=== PATIENT | female | born 1940 | race Caucasian/White ===

== ENCOUNTER 2017-07-29 11:56 | Observation (INO) | payer MEDICARE ==
[2017-07-29] VITALS (7 sets, daily range): BP systolic 133–146; BP diastolic 68–82; PULSE 63–81; RESP 16–18; TEMP 97.8–98.7; O2SAT 94–98
[~2017-07-29] VITALS: Ht 162.6 cm; Wt 70.0 kg
[~2017-07-29 11:56] MED LIST: ASPI325T PO; ATOR20TA42 PO; COQ-100C2 PO; LEXA10TA PO; SYNT25TA PO; TAB-TAB PO; VALA500 PO; VITA-13 PO; ZOLP5TAB3 PO
--- NOTE | 2017-07-29 12:02 | PD ---
Physical Exam Time Seen by Provider: 12:02 Narrative 77 y/o female here with chest pain which started at 1 AM, none currently. Vital signs reviewed. Seen at triage desk. Awaiting bed placement. Data Data Last Documented VS Vital Signs Date Time Temp Pulse Resp B/P (MAP) Pulse Ox O2 Delivery O2 Flow Rate FiO2 07/29/17 11:57 97.8 81 18 146/82 (103) 95 Room Air MDM Medical Record Reviewed: Yes Supervised Visit with WING: Orville Morgan Jul 29, 2017 12:02
[2017-07-29] MEDS ORDERED: COQ-50CA2 P-ARTICULR (12:20)
[2017-07-29] MEDS ORDERED: ATOR20TA15 PO (12:20)
[2017-07-29] MEDS ORDERED: FISHCAP4 PO (12:20)
[2017-07-29] MEDS ORDERED: LEVO125T4 PO (12:20)
[2017-07-29] MEDS ORDERED: ASPI325T PO (12:20)
[2017-07-29] MEDS ORDERED: MULTTAB67 PO (12:20)
[2017-07-29] MEDS: NITROGLYCERIN 0.4 MG SL 25 TABS/BTL SL SCH ×3 (12:30→12:40)
[2017-07-29] MEDS ORDERED: SODIUM CHLORIDE 0.9% FLUSH 10 ML FLUSH IVF PRN (12:30)
--- NOTE | 2017-07-29 12:30 | PD ---
HPI Chief Complaint: Chest Pain Time Seen by Provider: 12:18 Travel History International Travel<30 days: No Contact w/Intl Traveler<30days: No History of Present Illness HPI Patient comes in complaining of chest pain that began around 1:00 this morning. Patient states that she awoke this morning feeling some numbness or left arm when she rolled her she noticed a heaviness in her chest. Patient states the left arm has resolved, but she continues to have the heaviness in her chest. Patient reports associated shortness of breath with this. Denies any nausea, vomiting, headache, dizziness, change in vision, no pain, nausea, vomiting, loss change in bowel or bladder. Patient states she took a full dose aspirin this morning with her regular medications and after debating a for while contacted her primary care doctor who recommended she come to the emergency department for further treatment and evaluation. Patient reports she had a stress test done approximately a year ago by Dr. Swartz. Patient reports that she has 80% blockage in one of her coronary arteries that was not able to be stented and she is being managed medically. PFSH Past Medical History Cancer: No Cardiac Catheterization: Yes Cardiovascular Problems: Yes High Cholesterol: Yes Coronary Artery Disease: Yes Diabetes: No Diminished Hearing: No Endocrine: Yes Gastrointestinal Disorders: Yes (GERD, DIVERTICULOSIS) Glaucoma: No Genitourinary: No Hepatitis: No Hiatal Hernia: No Hypertension: No Musculoskeletal: No Neurologic: No Psychiatric: No Respiratory: No Thyroid Disease: Yes ?: Not Menopausal: Yes Past Surgical History Abdominal Surgery: Yes (ABDOMINAL HYSTERECTOMY) Cardiac Surgery: No Coronary Stent: Yes Ear Surgery: No Endocrine Surgery: No Eye Surgery: Yes (RIGHT EYE CATARACT SX) Gynecologic Surgery: No Hysterectomy: Yes Oral Surgery: Yes (TONSILLECTOMY; PARTIAL LOWER BRIDGE) Pacemaker: No Thoracic Surgery: No Other Surgery: Yes Social History Alcohol Use: No Tobacco Use: No Substance Use: No Allergies-Medications (Allergen,Severity, Reaction): Coded Allergies: amoxicillin (Unverified Adverse Reaction, Severe, NAUSEA VOMITING DIARRHEA , 06/16/17) clavulanic acid (Unverified Adverse Reaction, Severe, NAUSEA VOMITING DIARRHEA, 06/16/17) codeine (Unverified Adverse Reaction, Severe, NAUSEA VOMITING, 06/16/17) Sulfa (Sulfonamide Antibiotics) (Unverified Adverse Reaction, Mild, NAUSEA , 06/16/17) Reported Meds & Prescriptions Reported Meds & Active Scripts Active Reported Aspirin 325 Mg Tab 325 Mg PO DAILY Fish Oil + D3 (Fish Oil-Cholecalciferol) 1,200-1,000 Mg-Unit Cap 1 Cap PO DAILY Multiple Vitamin 1 Tab 1 Tab PO DAILY Coq-10 (Coenzyme Q10 (Ubidecarenone)) 50 Mg Cap 100 Mg P-ARTICULR DAILY Levothyroxine (Levothyroxine Sodium) 125 Mcg Tab 125 Mcg PO DAILY Atorvastatin (Atorvastatin Calcium) 20 Mg Tab 20 Mg PO HS Review of Systems Except as stated in HPI: all other systems reviewed are Neg Physical Exam Narrative GENERAL: Well-developed, well nourished, in no acute distress, and non-ill appearing. SKIN: Focused skin assessment warm and dry. HEAD: Atraumatic. Normocephalic. EYES: Pupils equal and round. EOMI. No scleral icterus. No injection or drainage. ENT: No nasal bleeding or discharge. Mucous membranes pink and moist. NECK: Trachea midline. No JVD. Supple. No nuclear rigidity. CARDIOVASCULAR: Regular rate and rhythm. No murmur appreciated. RESPIRATORY: No accessory muscle use. No respiratory distress. Clear to auscultation. Breath sounds equal bilaterally. GASTROINTESTINAL: Abdomen soft, non-tender, nondistended, and no guarding. Hepatic and splenic margins not palpable. No pulsatile mass. MUSCULOSKELETAL: No obvious deformities. No clubbing. No cyanosis. No edema. Full range of motion. NEUROLOGICAL: Awake and alert. No obvious cranial nerve deficits. Motor grossly within normal limits. Normal speech. PSYCHIATRIC: Appropriate mood and affect; insight and judgment normal. Data Data Last Documented VS Vital Signs Date Time Temp Pulse Resp B/P (MAP) Pulse Ox O2 Delivery O2 Flow Rate FiO2 07/29/17 12:33 94 Nasal Cannula 2.00 07/29/17 12:33 16 07/29/17 11:57 97.8 81 Orders Orders Electrocardiogram (07/29/17 12:25) Basic Metabolic Panel (Bmp) (07/29/17 12:25) Ckmb (Isoenzyme) Profile (07/29/17 12:25) Complete Blood Count With Diff (07/29/17 12:25) Magnesium (Mg) (07/29/17 12:25) Prothrombin Time / Inr (Pt) (07/29/17 12:25) Act Partial Throm Time (Ptt) (07/29/17 12:25) Troponin I (07/29/17 12:25) Chest, Single Ap (07/29/17 12:25) Ecg Monitoring (07/29/17 12:25) Bilateral Bp Monitoring (07/29/17 12:25) Iv Access Insert/Monitor (07/29/17 12:25) Oximetry (07/29/17 12:25) Oxygen Administration (07/29/17 12:25) Sodium Chloride 0.9% Flush (Ns Flush) (07/29/17 12:30) Nitroglycerin Sl (Nitrostat Sl) (07/29/17 12:30) CKMB (07/29/17 12:21) CKMB% (07/29/17 12:21) Admit Order (Ed Use Only) (07/29/17 14:23) Labs Laboratory Tests Test 07/29/17 12:21 White Blood Count 5.4 TH/MM3 Red Blood Count 4.16 MIL/MM3 Hemoglobin 12.4 GM/DL Hematocrit 37.8 % Mean Corpuscular Volume 90.7 FL Mean Corpuscular Hemoglobin 29.8 PG Mean Corpuscular Hemoglobin Concent 32.8 % Red Cell Distribution Width 16.1 % Platelet Count 235 TH/MM3 Mean Platelet Volume 8.2 FL Neutrophils (%) (Auto) 50.5 % Lymphocytes (%) (Auto) 34.2 % Monocytes (%) (Auto) 11.4 % Eosinophils (%) (Auto) 3.2 % Basophils (%) (Auto) 0.7 % Neutrophils # (Auto) 2.7 TH/MM3 Lymphocytes # (Auto) 1.9 TH/MM3 Monocytes # (Auto) 0.6 TH/MM3 Eosinophils # (Auto) 0.2 TH/MM3 Basophils # (Auto) 0.0 TH/MM3 CBC Comment DIFF FINAL Differential Comment Prothrombin Time 10.5 SEC Prothromb Time International Ratio 1.0 RATIO Activated Partial Thromboplast Time 23.3 SEC Blood Urea Nitrogen 15 MG/DL Creatinine 0.91 MG/DL Random Glucose 81 MG/DL Calcium Level 8.6 MG/DL Magnesium Level 2.2 MG/DL Sodium Level 137 MEQ/L Potassium Level 4.3 MEQ/L Chloride Level 105 MEQ/L Carbon Dioxide Level 29.6 MEQ/L Anion Gap 2 MEQ/L Estimat Glomerular Filtration Rate 60 ML/MIN Total Creatine Kinase 104 U/L Creatine Kinase MB 1.7 NG/ML Troponin I LESS THAN 0.02 NG/ML MDM Medical Decision Making Medical Screen Exam Complete: Yes Emergency Medical Condition: Yes Interpretation(s) EKG reviewed by Dr. Bauman shows sinus rhythm with ventricular rate of 66. No STEMI. Chest x-ray read by the radiologist shows: No acute disease. Differential Diagnosis Acute cardiac syndrome, angina, pneumonia, electrolyte abnormality, pneumothorax , other Narrative Course Patient was seen and examined. IV was established patient was placed on cardiac monitoring. Discussed patient with Dr. Bauman, Zegerid of care and disposition. Discussed all findings and plan care of patient was agreeable for admission. All questions were answered. Discussed patient with hospitalist , who is agreeable to admit the patient. Patient remained stable throughout ED course. Physician Communication Physician Communication [address] Ordoñez, who is agreeable to admit the patient. [address] Swartz, who is agreeable to consult on the patient. Diagnosis Primary Impression: Chest pain Qualified Codes: R07.9 - Chest pain, unspecified Admitting Information Admitting Physician Requests: Observation Condition: Stable Lemuel Kimbrough Jul 29, 2017 12:30
[2017-07-29 12:45] LABS: AUTOMATED NEUTROPHIL # 2.7 TH/MM3 (1.8-7.7); BASOPHIL % 0.7 % (0.0-2.0); EOSINOPHIL # 0.2 TH/MM3 (0-0.4); EOSINOPHIL % 3.2 % (0.0-4.0); HEMATOCRIT 37.8 % (35.0-46.0); HEMO FLAGS DIFF FINAL; LYMPH % 34.2 % (9.0-44.0); LYMPHOCYTE # 1.9 TH/MM3 (1.0-4.8); MEAN CELL VOLUME 90.7 FL (80.0-100.0); MEAN CORPUSCULAR HEMOGLOBIN 29.8 PG (27.0-34.0); MEAN CORPUSCULAR HGB CONC 32.8 % (32.0-36.0); MONO % 11.4 % (0.0-8.0); NEUT % 50.5 % (16.0-70.0); PLATELET COUNT 235 TH/MM3 (150-450); RED BLOOD COUNT 4.16 MIL/MM3 (4.00-5.30); RED CELL DISTRIBUTION WIDTH 16.1 % (11.6-17.2); WHITE BLOOD COUNT 5.4 TH/MM3 (4.0-11.0)
[2017-07-29 12:58] LABS: APTT (PATIENT) 23.3 SEC (24.3-30.1); PROTHROMBIN TIME - PATIENT 10.5 SEC (9.8-11.6)
[2017-07-29 13:18] LABS: ANION GAP 2 MEQ/L (5-15); BICARBONATE 29.6 MEQ/L (21.0-32.0); BLOOD UREA NITROGEN 15 MG/DL (7-18); CHLORIDE 105 MEQ/L (98-107); GLOMERULAR FILTRATION RATE 60 ML/MIN (>89); MAGNESIUM 2.2 MG/DL (1.5-2.5); POTASSIUM 4.3 MEQ/L (3.5-5.1); SODIUM (NA) 137 MEQ/L (136-145)
[2017-07-29 13:22] LABS: CREATINE KINASE 104 U/L (26-192)
[2017-07-29 13:33] LABS: CKMB 1.7 NG/ML (0.5-3.6)
--- NOTE | 2017-07-29 13:57 | RADRPT ---
EXAM DATE/TIME: 07/29/2017 13:07 [facility] COMPARISON: CHEST SINGLE AP, April 09, 2015, 12:01. INDICATIONS : Heart palpitations. MEDICAL HISTORY : Myocardial infarction. SURGICAL HISTORY : None. ENCOUNTER: Initial ACUITY: 1 day PAIN SCORE: 4/10 LOCATION: Bilateral chest FINDINGS: A single view of the chest demonstrates the lungs to be symmetrically aerated without evidence of mas s, infiltrate or effusion. The cardiomediastinal contours are unremarkable. Osseous structures are intact. CONCLUSION: No acute disease. Mariano Miller MD FACR on July 29, 2017 at 13:56 Board Certified Radiologist. This report was verified electronically.
[2017-07-29] MEDS ORDERED: NITROGLYCERIN 0.4 MG SL 25 TABS/BTL SL PRN (14:30)
[2017-07-29] MEDS ORDERED: ACETAMINOPHEN 500 MG CPLT PO PRN (14:30)
[2017-07-29] MEDS ORDERED: MORPHINE SULFATE 4 MG/ML INJ IV PUSH PRN (14:30)
[2017-07-29] MEDS ORDERED: SODIUM CHLORIDE 0.9% FLUSH 10 ML FLUSH IV FLUSH PRN (14:30)
[2017-07-29] MEDS: NITROGLYCERIN 2% OINT 1 GM PACKET TOP SCH ×2 (15:00→20:20)
--- NOTE | 2017-07-29 15:42 | HHI.HP ---
[facility] Service [facility] Primary Care Physician Unknown Admission Diagnosis chest pain Diagnoses: Chief Complaint: Chest pain Travel History International Travel<30 Days: No Contact w/Intl Traveler <30 Da: No History of Present Illness This is a 77-year-old female past medical history of coronary artery disease and hypothyroidism who presented with chest pain. Patient stated that last night she had up left arm numbness and chest pressure. She stated that she fell asleep and then woke up with a chest heaviness, but left arm numbness resolved. Patient denies any nausea or vomiting or diaphoresis during this episode. She stated that she spoke with her primary care physician Dr. Cazares in which he did EKG which was negative. He told patient to go to ER for further workup. Patient also had a similar episode happened one week ago. At the moment she denies any chest pain or heaviness. Patient's modeling agency manager is Dr. Nunez. She stated that she had a nuclear stress test recently and that he wanted to continue with medical management. No history of tobacco use. All other review system reviewed and negative. Past Family Social History Past Medical History Coronary artery disease Hypothyroidism Bilateral carotid stenosis 40-70% Past Surgical History Hysterectomy Bilateral cataract removal Tonsillectomy Reported Medications Mother was healthy until she had an NJ at the age of 87. Otherwise no significant past family history. Allergies: Coded Allergies: amoxicillin (Unverified Adverse Reaction, Severe, NAUSEA VOMITING DIARRHEA , 06/16/17) clavulanic acid (Unverified Adverse Reaction, Severe, NAUSEA VOMITING DIARRHEA, 06/16/17) codeine (Unverified Adverse Reaction, Severe, NAUSEA VOMITING, 06/16/17) Sulfa (Sulfonamide Antibiotics) (Unverified Adverse Reaction, Mild, NAUSEA , 06/16/17) Active Ordered Medications Current Medications Sodium Chloride (NS Flush) 2 ml UNSCH PRN IVF FLUSH AFTER USING IV ACCESS; Start 07/29/17 at 12:30; Stop 07/29/17 at 14:50; Status DC Nitroglycerin (Nitrostat Sl) 0.4 mg Q5M SL ; Start 07/29/17 at 12:30; Stop 07/29 at 12:41; Status DC Sodium Chloride (NS Flush) 2 ml BID IV FLUSH ; Start 07/29/17 at 21:00 Sodium Chloride (NS Flush) 2 ml UNSCH PRN IV FLUSH FLUSH AFTER USING IV ACCESS ; Start 07/29/17 at 14:30 Nitroglycerin (Nitroglycerin 2% Oint) 1 inch Q6H TOP ; Start 07/29/17 at 15:00 Nitroglycerin (Nitrostat Sl) 0.4 mg Q5M PRN SL ANGINA; Start 07/29/17 at 14:30 Acetaminophen (Tylenol) 500 mg Q4H PRN PO HEADACHE; Start 07/29/17 at 14:30 Morphine Sulfate (Morphine Inj) 2 mg Q5M PRN IV PUSH PAIN SCALE 6 TO 10; Start 07/29/17 at 14:30 Enoxaparin Sodium (Lovenox Inj) 40 mg Q24H SQ ; Start 07/29/17 at 15:00 Aspirin (Aspirin) 325 mg DAILY PO ; Start 07/30/17 at 09:00 Atorvastatin Calcium (Lipitor) 20 mg HS PO ; Start 07/29/17 at 21:00 Levothyroxine Sodium (Synthroid) 125 mcg DAILY@0600 PO ; Start 07/30/17 at 06:00 Non-Formulary Medication 100 mg DAILY P-ARTICULR ; Start 07/30/17 at 09:00; Stop 07/30/17 at 09:00; Status DC Non-Formulary Medication 1 cap DAILY PO ; Start 07/30/17 at 09:00; Stop at 09:00; Status DC Multivitamins (Theragran) 1 tab DAILY PO ; Start 07/30/17 at 09:00 Family History Mother had NJ at the age of 87. Otherwise family history negative. Social History Deny any history of tobacco use. Drinks about half a beer once a week. Physical Exam Vital Signs Vital Signs Date Time Temp Pulse Resp B/P (MAP) Pulse Ox O2 Delivery O2 Flow Rate FiO2 07/29/17 14:48 98 21 07/29/17 12:33 94 Nasal Cannula 2.00 07/29/17 12:33 16 94 Nasal Cannula 2.00 07/29/17 11:57 97.8 81 18 146/82 (103) 95 Room Air Physical Exam GENERAL: This is a well-nourished, well-developed patient, in no apparent distress. SKIN: No rashes, ecchymoses or lesions. Cool and dry. HEAD: Atraumatic. Normocephalic. No temporal or scalp tenderness. EYES: Pupils equal round and reactive. Extraocular motions intact. No scleral icterus. No injection or drainage. ENT: Nose without bleeding, purulent drainage or septal hematoma. Throat without erythema, tonsillar hypertrophy or exudate. Uvula midline. Airway patent. NECK: Trachea midline. No JVD or lymphadenopathy. Supple, nontender, no meningeal signs. CARDIOVASCULAR: Regular rate and rhythm without murmurs, gallops, or rubs. RESPIRATORY: Clear to auscultation. Breath sounds equal bilaterally. No wheezes , rales, or rhonchi. GASTROINTESTINAL: Abdomen soft, non-tender, nondistended. No hepato-splenomegaly , or palpable masses. No guarding. MUSCULOSKELETAL: Extremities without clubbing, cyanosis, or edema. No joint tenderness, effusion, or edema noted. No calf tenderness. Negative Homans sign bilaterally. NEUROLOGICAL: Awake and alert. Cranial nerves II through XII intact. Motor and sensory grossly within normal limits. Five out of 5 muscle strength in all muscle groups. Normal speech. Laboratory Laboratory Tests Test 07/29/17 12:21 White Blood Count 5.4 Red Blood Count 4.16 Hemoglobin 12.4 Hematocrit 37.8 Mean Corpuscular Volume 90.7 Mean Corpuscular Hemoglobin 29.8 Mean Corpuscular Hemoglobin Concent 32.8 Red Cell Distribution Width 16.1 Platelet Count 235 Mean Platelet Volume 8.2 Neutrophils (%) (Auto) 50.5 Lymphocytes (%) (Auto) 34.2 Monocytes (%) (Auto) 11.4 Eosinophils (%) (Auto) 3.2 Basophils (%) (Auto) 0.7 Neutrophils # (Auto) 2.7 Lymphocytes # (Auto) 1.9 Monocytes # (Auto) 0.6 Eosinophils # (Auto) 0.2 Basophils # (Auto) 0.0 CBC Comment DIFF FINAL Differential Comment Prothrombin Time 10.5 Prothromb Time International Ratio 1.0 Activated Partial Thromboplast Time 23.3 Blood Urea Nitrogen 15 Creatinine 0.91 Random Glucose 81 Calcium Level 8.6 Magnesium Level 2.2 Sodium Level 137 Potassium Level 4.3 Chloride Level 105 Carbon Dioxide Level 29.6 Anion Gap 2 Estimat Glomerular Filtration Rate 60 Total Creatine Kinase 104 Creatine Kinase MB 1.7 Troponin I LESS THAN 0.02 Result Diagram: 07/29/17 1221 07/29/17 1221 Imaging Last Impressions Chest X-Ray 07/29/17 1225 Signed Impressions: Service Date/Time: Saturday, July 29, 2017 13:07 - CONCLUSION: No acute disease. Mariano Miller MD FACR Caprini VTE Risk Assessment Caprini VTE Risk Assessment: Mod/High Risk (score >= 2) Caprini Risk Assessment Model Point Value = 1 Point Value = 2 Point Value = 3 Point Value = 5 Age 41-60 Minor surgery BMI > 25 kg/m2 Swollen legs Varicose veins or History of unexplained or recurrent spontaneous Oral contraceptives or hormone replacement Sepsis (< 1 month) Serious lung disease, including pneumonia (< 1 month) Abnormal pulmonary function Acute myocardial infarction Congestive heart failure (< 1 month) History of inflammatory bowel disease Medical patient at bed rest Age 61-74 Arthroscopic surgery Major open surgery (> 45 min) Laparoscopic surgery (> 45 min) Malignancy Confined to bed (> 72 hours) Immobilizing plaster cast Central venous access Age >= 75 History of VTE Family history of VTE Factor V Leiden Prothrombin [id number] Lupus anticoagulant Anticardiolipin antibodies Elevated serum homocysteine Heparin-induced thrombocytopenia Other congenital or acquired thrombophilia Stroke (< 1 month) Elective arthroplasty Hip, pelvis, or leg fracture Acute spinal cord injury (< 1 month) Prophylaxis Regimen Total Risk Factor Score Risk Level Prophylaxis Regimen 0-1 Low Early ambulation 2 Moderate Order ONE of the following: *Sequential Compression Device (SCD) *Heparin 5000 units SQ BID 3-4 Higher Order ONE of the following medications: *Heparin 5000 units SQ TID *Enoxaparin/Lovenox 40 mg SQ daily (WT < 150 kg, CrCl > 30 mL/min) *Enoxaparin/Lovenox 30 mg SQ daily (WT < 150 kg, CrCl > 10-29 mL/min) *Enoxaparin/Lovenox 30 mg SQ BID (WT < 150 kg, CrCl > 30 mL/min) AND/OR *Sequential Compression Device (SCD) 5 or more Highest Order ONE of the following medications: *Heparin 5000 units SQ TID (Preferred with Epidurals) *Enoxaparin/Lovenox 40 mg SQ daily (WT < 150 kg, CrCl > 30 mL/min) *Enoxaparin/Lovenox 30 mg SQ daily (WT < 150 kg, CrCl > 10-29 mL/min) *Enoxaparin/Lovenox 30 mg SQ BID (WT < 150 kg, CrCl > 30 mL/min) AND *Sequential Compression Device (SCD) Assessment and Plan Assessment and Plan 77-year-old female with bilateral carotid stenosis 40-70%, history of coronary disease, hypothyroidism who presented with chest heaviness Chest pain -Patient is high risk. First troponin negative and EKG negative. Labs review all within normal limits. Will trend troponin and monitor over telemetry. -Patient already received aspirin today. Continue with home aspirin and statin. Will start metoprolol. Consult patient's modeling agency manager Dr. Nunez to help with management. -Nitroglycerin and morphine when necessary for chest pain. At the moment patient is chest pain-free. Coronary artery disease/bilateral carotid stenosis/hypothyroidism -Resume home medication. DVT prophylaxis -Lovenox Discussed Condition With patient and her Elissa Ordoñez MD Jul 29, 2017 15:42
[2017-07-29] MEDS: ENOXAPARIN SODIUM 40 MG/0.4 ML SYRINGE SQ SCH (15:50)
[2017-07-29] MEDS ORDERED: ENOXAPARIN SODIUM 40 MG/0.4 ML SYRINGE SQ SCH (16:00)
[2017-07-29 19:58] LABS: CREATINE KINASE 87 U/L (26-192)
[2017-07-29] MEDS: SODIUM CHLORIDE 0.9% FLUSH 10 ML FLUSH IV FLUSH SCH (20:20)
[2017-07-29] MEDS ORDERED: ATORVASTATIN 20 MG TAB PO SCH (21:00)
[2017-07-30] VITALS (9 sets, daily range): BP systolic 122–182; BP diastolic 65–84; PULSE 63–74; RESP 16–18; TEMP 97.7–97.8; O2SAT 96–97
[2017-07-30 00:45] LABS: CREATINE KINASE 89 U/L (26-192)
[2017-07-30] MEDS: NITROGLYCERIN 2% OINT 1 GM PACKET TOP SCH ×3 (03:00→14:36)
[2017-07-30] MEDS ORDERED: LEVOTHYROXINE SODIUM 125 MCG TAB PO SCH (06:00)
--- NOTE | 2017-07-30 07:38 | EKG ---
Date Performed: 07/29/2017 Time Performed: 20:32:04 PTAGE: 77 years EKG: Sinus rhythm NONSPECIFIC ST & T-WAVE ABNORMALITY BORDERLINE ECG Since PREVIOUS TRACING , no significant change noted PREVIOUS TRACIN07/29/2017 17.08 DOCTOR: Ilda Adame Interpretating Date/Time 07/30/2017 07:36:51
--- NOTE | 2017-07-30 07:53 | EKG ---
Date Performed: 07/29/2017 Time Performed: 17:08:38 PTAGE: 77 years EKG: Sinus rhythm NORMAL ECG Since PREVIOUS TRACING , no significant change noted PREVIOUS TRACIN07/29/2017 12.16 DOCTOR: Ilda Adame Interpretating Date/Time 07/30/2017 07:51:10
--- NOTE | 2017-07-30 08:03 | EKG ---
Date Performed: 07/29/2017 Time Performed: 12:16:59 PTAGE: 77 years EKG: Sinus rhythm POSSIBLE INFERIOR MYOCARDIAL INFARCTION BORDERLINE ECG Since PREVIOUS TRACING , no significant change noted PREVIOUS TRACIN04/09/2015 11.56 DOCTOR: Ilda Adame Interpretating Date/Time 07/30/2017 08:02:25
[2017-07-30] MEDS ORDERED: MULTIVITAMIN TAB PO SCH (09:00)
[2017-07-30] MEDS ORDERED: ASPIRIN 325 MG TAB PO SCH (09:00)
[2017-07-30] MEDS ORDERED: NON-FORMULARY DRUG (Fish Oil-Cholecalciferol (Fish Oil + D3) 1 CAP) PO SCH (09:00)
[2017-07-30] MEDS ORDERED: NON-FORMULARY DRUG (Coenzyme Q10 (Ubidecarenone) (Coq-10) 100 MG) P-ARTICULR SCH (09:00)
[2017-07-30] MEDS: SODIUM CHLORIDE 0.9% FLUSH 10 ML FLUSH IV FLUSH SCH (10:29)
[2017-07-30] MEDS: ENOXAPARIN SODIUM 40 MG/0.4 ML SYRINGE SQ SCH (14:36)
--- NOTE | 2017-07-30 17:03 | PD.AMA ---
Against Medical Advice Note Diagnosis: (1) CAD (coronary artery disease) (2) Chest pain (3) PVD (peripheral vascular disease) (4) Hyperlipidemia (5) Hypothyroidism Discharge Disposition: Against Medical Advice AMA Statement Patient Jennifer Zelaya has decided to leave the hospital against medical advice. This patient has the capacity to refuse care and understands the risks of leaving, including permanent disability and/or , and has had an opportunity to ask questions about her condition. The patient has been informed that she may return for care at any time, and follow up has been arranged/ advised. Discussed with RALF Webb and Caroline Shaikh Jul 30, 2017 17:03
--- NOTE | 2017-07-30 17:08 | PD.CONS ---
HPI Service Cardiology Physicians Consult Requested By Primary Care Physician Unknown History of Present Illness The patient is a 77 year old female known to our practice with a cardiac history of ASHD, carotid stenosis, HLD, PVD and TIA. The patient presented to the hospital for sudden onset of chest pain upon waking up without associated symptoms. Symptoms resolved prior to arriving at the hospital. She denies recent exertional CP or SOB. Since admission, troponin X 3 are negative and EKG is negative for acute ischemia. She is anxious to go home. (Jennifer Burt) Review of Systems Consitutional: DENIES: Fatigue, Fever, Chills, Weight gain, Weight loss Eyes: DENIES: Amaurosis F[place], Change in vision HEENT: DENIES: Lightheadedness, Change in hearing Respiratory: DENIES: See HPI, Cough, Snoring, Shortness of breath, Wheezing, Sputum production Cardiovascular: COMPLAINS OF: Chest pain, DENIES: See HPI, Palpitations, Syncope, Tachycardia Gastrointestinal: DENIES: Nausea, Vomiting, Change in bowel habits, Reflux, Bloody stools, Melena Genitourinary: DENIES: Urinary incontinence, Difficulty voiding Integumentary: DENIES: Rash Neurologic: DENIES: Tingling or numbness, Memory problems, Poor Balance, Stroke symptoms Musculoskeletal: DENIES: Joint pain, Muscle pain, Limited range of motion, Back pain Psychiatric: DENIES: Anxiety, Depression, Sleep disturbances Hematologic: DENIES: Bruising tendencies, Bleeding tendencies Endocrine: DENIES: Weight gain, Weight loss, Thyroid disease (Jennifer Burt ) Past Family Social History Allergies: Coded Allergies: amoxicillin (Unverified Adverse Reaction, Severe, NAUSEA VOMITING DIARRHEA , 06/16/17) clavulanic acid (Unverified Adverse Reaction, Severe, NAUSEA VOMITING DIARRHEA, 06/16/17) codeine (Unverified Adverse Reaction, Severe, NAUSEA VOMITING, 06/16/17) Sulfa (Sulfonamide Antibiotics) (Unverified Adverse Reaction, Mild, NAUSEA , 06/16/17) Past Medical History See HPI Past Surgical History Cardiac cath 2012 colonoscopy 2012 Hysterectomy 1989 Tonsillectomy 1956 Reported Medications Reported Meds & Active Scripts Active Reported Aspirin 325 Mg Tab 325 Mg PO DAILY Fish Oil + D3 (Fish Oil-Cholecalciferol) 1,200-1,000 Mg-Unit Cap 1 Cap PO DAILY Multiple Vitamin 1 Tab 1 Tab PO DAILY Coq-10 (Coenzyme Q10 (Ubidecarenone)) 50 Mg Cap 100 Mg P-ARTICULR DAILY Levothyroxine (Levothyroxine Sodium) 125 Mcg Tab 125 Mcg PO DAILY Atorvastatin (Atorvastatin Calcium) 20 Mg Tab 20 Mg PO HS Active Ordered Medications Current Medications Medications (Trade) Dose Ordered Sig/Sary Route Start Time Stop Time Status Last Admin (NS Flush) 2 ml BID IV FLUSH 07/29/17 21:00 07/30/17 10:29 (NS Flush) 2 ml UNSCH PRN IV FLUSH 07/29/17 14:30 (Nitroglycerin 2% Oint) 1 inch Q6H TOP 07/29/17 15:00 (Nitrostat Sl) 0.4 mg Q5M PRN SL 07/29/17 14:30 (Tylenol) 500 mg Q4H PRN PO 07/29/17 14:30 (Morphine Inj) 2 mg Q5M PRN IV PUSH 07/29/17 14:30 (Lovenox Inj) 40 mg Q24H SQ 07/29/17 15:00 07/29/17 15:50 (Aspirin) 325 mg DAILY PO 07/30/17 09:00 07/30/17 10:29 (Lipitor) 20 mg HS PO 07/29/17 21:00 07/29/17 20:20 (Synthroid) 125 mcg DAILY@0600 PO 07/30/17 06:00 07/30/17 06:05 (Theragran) 1 tab DAILY PO 07/30/17 09:00 07/30/17 10:29 (Lovenox Inj) 40 mg Q24H SQ 07/29/17 16:00 Family History non contributory Social History non smoker, rare ETOH (Jennifer Burt) Physical Exam Vital Signs Vital Signs Date Time Temp Pulse Resp B/P (MAP) Pulse Ox O2 Delivery O2 Flow Rate FiO2 07/30/17 15:57 97.7 72 18 122/65 (84) 97 07/30/17 15:36 64 07/30/17 11:20 97.8 70 16 134/73 (93) 96 07/30/17 08:56 97.7 67 16 182/84 (116) 96 07/30/17 08:45 67 07/30/17 04:00 63 07/30/17 03:27 97.7 74 17 122/72 (89) 96 07/30/17 00:25 63 07/30/17 00:19 97.7 64 17 136/80 (98) 96 07/29/17 20:04 63 07/29/17 20:02 97 21 07/29/17 19:39 98.7 66 18 133/68 (89) 97 07/29/17 19:23 69 Physical Exam GENERAL: Elderly female walking out of her room in theER SKIN: Warm and dry. HEAD: Atraumatic. Normocephalic. EYES: Pupils equal and round. No scleral icterus. ENT: No nasal bleeding or discharge. NECK: Trachea midline. CARDIOVASCULAR: Regular rate and rhythm. RESPIRATORY: No accessory muscle use. Clear to auscultation. Breath sounds equal bilaterally. GASTROINTESTINAL: Abdomen soft, non-tender, nondistended. MUSCULOSKELETAL: Extremities without clubbing, cyanosis, or edema. NEUROLOGICAL: Awake and alert. No obvious cranial nerve deficits. Motor grossly within normal limits. Normal speech. PSYCHIATRIC: Appropriate mood and affect; insight and judgment normal. Laboratory Laboratory Tests Test 07/29/17 18:04 07/30/17 00:16 Total Creatine Kinase 87 89 Troponin I LESS THAN 0.02 LESS THAN 0.02 (Jennifer Burt) Result Diagram: 07/29/17 1221 07/29/17 1221 Imaging Last 72 hours Impressions Chest X-Ray 07/29/17 1225 Signed Impressions: Service Date/Time: Saturday, July 29, 2017 13:07 - CONCLUSION: No acute disease. Mariano Miller MD FACR (Jennifer Burt) Assessment and Plan Assessment and Plan Chest pain - negative troponin X 3 and EKG negative for ischemia ASHD HLD Carotid stenosis PAD PLAN: The patient is clear from a cardiac standpoint. We will follow up in the office in 2-3 week. We will complete ischemic work up outpatient.; Advised to return to the ER immediately with recurrent symptoms. The patient was seen and evaluated by Dr Nunez who completed a face to face encounter and physical exam and participated in evaluation and management. (Jennifer Burt) Assessment and Plan The exam, history, and the medical decision-making described in the above note were completed with the assistance of the mid-level provider. I reviewed and agree with the findings presented. I attest that I had a [id number] encounter with the patient on the same day, and personally performed and documented my assessment and findings in the medical record. Overall doing better , FU as o/p (Mikayla Nunez MD) Jennifer Burt Jul 30, 2017 17:08 Mikayla Nunez MD Jul 31, 2017 09:56
--- NOTE | 2017-07-30 17:51 | HHI.PR ---
Subjective Remarks Late entry - patient seen at 8am Follow up on patient with chest pain, CAD. Patient seen and examined. Patient denies any complaints of chest pain overnight. She states she feels well and has no complaints. She denies any fever or chills. She denies any shortness of breath. She denies any nausea, vomiting or abdominal pain. She is urinating well. Objective Vitals Vital Signs Date Time Temp Pulse Resp B/P (MAP) Pulse Ox O2 Delivery O2 Flow Rate FiO2 07/30/17 15:57 97.7 72 18 122/65 (84) 97 07/30/17 15:36 64 07/30/17 11:20 97.8 70 16 134/73 (93) 96 07/30/17 08:56 97.7 67 16 182/84 (116) 96 07/30/17 08:45 67 07/30/17 04:00 63 07/30/17 03:27 97.7 74 17 122/72 (89) 96 07/30/17 00:25 63 07/30/17 00:19 97.7 64 17 136/80 (98) 96 07/29/17 20:04 63 07/29/17 20:02 97 21 07/29/17 19:39 98.7 66 18 133/68 (89) 97 07/29/17 19:23 69 Result Diagram: 07/29/17 1221 07/29/17 1221 Imaging Last Impressions Chest X-Ray 07/29/17 1225 Signed Impressions: Service Date/Time: Saturday, July 29, 2017 13:07 - CONCLUSION: No acute disease. Mariano Miller MD FACR Objective Remarks GENERAL: This is a well-nourished, well-developed patient, in no apparent distress. Awake and alert. Appears younger than stated age. SKIN: No rashes. Cool and dry. HEAD: Atraumatic. Normocephalic. EYES: Extraocular motions intact. No scleral icterus. No injection or drainage. ENT: Nose without bleeding, purulent drainage. Airway patent. MMM. NECK: Trachea midline. Supple. CARDIOVASCULAR: Regular rate and rhythm without murmurs, gallops, or rubs. RESPIRATORY: Clear to auscultation. Breath sounds equal bilaterally. No wheezes , rales, or rhonchi. GASTROINTESTINAL: Abdomen soft, non-tender, nondistended. No hepato-splenomegaly , or palpable masses. No guarding. MUSCULOSKELETAL: Extremities without clubbing, cyanosis, or edema. No joint tenderness, effusion, or edema noted. No calf tenderness. NEUROLOGICAL: Awake and alert. Able to move all extremities. Nonfocal. Normal speech. Medications and IVs Sodium Chloride (NS Flush) 2 ml UNSCH PRN IVF FLUSH AFTER USING IV ACCESS; Start 07/29/17 at 12:30; Stop 07/29/17 at 14:50; Status DC Nitroglycerin (Nitrostat Sl) 0.4 mg Q5M SL ; Start 07/29/17 at 12:30; Stop 07/29 at 12:41; Status DC Sodium Chloride (NS Flush) 2 ml BID IV FLUSH ; Start 07/29/17 at 21:00 Sodium Chloride (NS Flush) 2 ml UNSCH PRN IV FLUSH FLUSH AFTER USING IV ACCESS ; Start 07/29/17 at 14:30 Nitroglycerin (Nitroglycerin 2% Oint) 1 inch Q6H TOP ; Start 07/29/17 at 15:00 Nitroglycerin (Nitrostat Sl) 0.4 mg Q5M PRN SL ANGINA; Start 07/29/17 at 14:30 Acetaminophen (Tylenol) 500 mg Q4H PRN PO HEADACHE; Start 07/29/17 at 14:30 Morphine Sulfate (Morphine Inj) 2 mg Q5M PRN IV PUSH PAIN SCALE 6 TO 10; Start 07/29/17 at 14:30 Enoxaparin Sodium (Lovenox Inj) 40 mg Q24H SQ ; Start 07/29/17 at 15:00 Aspirin (Aspirin) 325 mg DAILY PO ; Start 07/30/17 at 09:00 Atorvastatin Calcium (Lipitor) 20 mg HS PO ; Start 07/29/17 at 21:00 Levothyroxine Sodium (Synthroid) 125 mcg DAILY@0600 PO ; Start 07/30/17 at 06:00 Non-Formulary Medication 100 mg DAILY P-ARTICULR ; Start 07/30/17 at 09:00; Stop 07/30/17 at 09:00; Status DC Non-Formulary Medication 1 cap DAILY PO ; Start 07/30/17 at 09:00; Stop at 09:00; Status DC Multivitamins (Theragran) 1 tab DAILY PO ; Start 07/30/17 at 09:00 A/P Assessment and Plan 77-year-old female with bilateral carotid stenosis 40-70%, history of coronary disease, hypothyroidism who presented with chest heaviness Chest pain -Patient is high risk. First troponin negative and EKG negative. Labs review all within normal limits. Troponin flat x 3. No events noted on telemetry. -Continue with home aspirin and statin. Patient's scraper tender Dr. Nunez consulted to help with management - pending. -Nitroglycerin and morphine when necessary for chest pain. -Patient remains chest pain free since admission -PT eval/tx Coronary artery disease/bilateral carotid stenosis/hypothyroidism -Continue home medication. DVT prophylaxis -Lovenox Discussed with patient, RN and Caroline Shaikh Jul 30, 2017 17:51
== END 2017-07-30 17:27 | disposition left against medical advice (07) ==
LOC: NEPE 11:56 → NEDA 14:24 → NEPGCP 16:39
PROVIDERS: ADMIT Family Medicine; ATTEND Family Medicine
DX: R07.89 Other chest pain (principal); I25.10 Atherosclerotic heart disease of native coronary artery without angina pectoris; E03.9 Hypothyroidism, unspecified; I65.23 Occlusion and stenosis of bilateral carotid arteries; E78.5 Hyperlipidemia, unspecified; I73.9 Peripheral vascular disease, unspecified; R94.31 Abnormal electrocardiogram [ECG] [EKG]; Z86.73 Personal history of transient ischemic attack (TIA), and cerebral infarction without residual deficits
CPT/HCPCS: 71010; 80048; 82550; 82552; 83735; 84484; 85025; 85610; 85730; 93005; 96372; 97162; 99285; G0378; G8987; G8988; J1650

== ENCOUNTER 2017-10-12 14:38 | Inpatient (IN) | payer MEDICARE ==
[2017-10-12] VITALS (7 sets, daily range): BP systolic 157–218; BP diastolic 80–109; PULSE 64–76; RESP 16–28; TEMP 97.7–98; O2SAT 95–100
[~2017-10-12] VITALS: Ht 162.6 cm; Wt 69.0 kg
[~2017-10-12 14:38] MED LIST changes: +ASPI-183 PO; -ASPI325T PO; +ATOR20TA15 PO; -ATOR20TA42 PO; -COQ-100C2 PO; +COQ-50CA2 P-ARTICULR; +FISHCAP4 PO; +LEVO125T4 PO; -LEXA10TA PO; +MULTTAB67 PO; -SYNT25TA PO; -TAB-TAB PO; -VALA500 PO; -VITA-13 PO; -ZOLP5TAB3 PO
[2017-10-12] MEDS ORDERED: MAGN100T2 PO (15:09)
[2017-10-12] MEDS ORDERED: VALA500T PO (15:09)
[2017-10-12] MEDS ORDERED: ESCI20TA PO (15:09)
[2017-10-12] MEDS ORDERED: CO Q100C9 PO (15:09)
[2017-10-12] MEDS ORDERED: BIOTCAP PO (15:09)
[2017-10-12] MEDS ORDERED: KRIL1CAP15 PO (15:09)
[2017-10-12] MEDS ORDERED: FIBE625T PO (15:09)
--- NOTE | 2017-10-12 15:21 | PD ---
HPI Chief Complaint: Neuro Symptoms/ Deficits Time Seen by Provider: 15:06 Travel History International Travel<30 days: No Contact w/Intl Traveler<30days: No Traveled to known affect area: No History of Present Illness HPI This 77-year-old female is brought in because of repetitive questioning. She was okay this morning. She woke up and was fine. Since around 9:00 she's been repeatedly asking what day it is. Complaining of a headache at the vertex of the head for a little while but that is cleared up. She has not been unsteady on her feet were clumsy with her arms. At 2:00 she took an aspirin. Her says that she has been about the same since the symptoms started. When she had a first started she was extremely anxious about them but that is settled down. She remains confused as to what the date is. PFSH Past Medical History Cancer: No Cardiac Catheterization: Yes Cardiovascular Problems: Yes High Cholesterol: Yes Chest Pain: Yes Coronary Artery Disease: Yes Diabetes: No Diminished Hearing: No Endocrine: Yes Gastrointestinal Disorders: Yes (GERD, DIVERTICULOSIS) Glaucoma: No Genitourinary: No Hepatitis: No Hiatal Hernia: No Hypertension: No Medical other: No Musculoskeletal: No Neurologic: No Psychiatric: No Respiratory: No Thyroid Disease: Yes (hypothyroidism) Tetanus Vaccination: > 5 Years ?: Not Menopausal: Yes Past Surgical History Abdominal Surgery: Yes (ABDOMINAL HYSTERECTOMY) Cardiac Surgery: No Coronary Stent: Yes Ear Surgery: No Endocrine Surgery: No Eye Surgery: Yes (RIGHT EYE CATARACT SX) Gynecologic Surgery: No Hysterectomy: Yes Neurologic Surgery: No Oral Surgery: Yes (TONSILLECTOMY; PARTIAL LOWER BRIDGE) Pacemaker: No Thoracic Surgery: No Other Surgery: Yes Social History Alcohol Use: No Tobacco Use: No Substance Use: No Allergies-Medications (Allergen,Severity, Reaction): Coded Allergies: amoxicillin (Unverified Adverse Reaction, Severe, NAUSEA VOMITING DIARRHEA , 10/12/17) clavulanic acid (Unverified Adverse Reaction, Severe, NAUSEA VOMITING DIARRHEA, 10/12/17) codeine (Unverified Adverse Reaction, Severe, NAUSEA VOMITING, 10/12/17) Sulfa (Sulfonamide Antibiotics) (Unverified Adverse Reaction, Mild, NAUSEA , 10/12/17) Reported Meds & Prescriptions Reported Meds & Active Scripts Active Reported Magnesium Citrate 100 Mg Tab 250 Mg PO DAILY PRN Fibercon (Calcium Polycarbophil) 625 Mg Tab 1,250 Mg PO DAILY PRN Co Q 10 (Coenzyme Q10 (Ubidecarenone)) 100 Mg-5 Unit Cap 1 Tab PO HS Biotin 5 Mg Cap 5 Mg PO DAILY [place]-3 Krill Oil Sfgl (Krill/Om-3/Dha/Epa/Phospho/Ast) 300-90-24 Capsule 1 Tab PO DAILY Escitalopram (Escitalopram Oxalate) 20 Mg Tab 20 Mg PO DAILY Valacyclovir (Valacyclovir HCl) 500 Mg Tab 250 Mg PO DAILY Aspirin 325 Mg Tab 325 Mg PO DAILY Levothyroxine (Levothyroxine Sodium) 125 Mcg Tab 112 Mcg PO DAILY Atorvastatin (Atorvastatin Calcium) 20 Mg Tab 10 Mg PO HS Review of Systems General / Constitutional: No: Fever, Chills Eyes: No: Diploplia HENT: Positive: Headaches Cardiovascular: No: Chest Pain or Discomfort, Palpitations Respiratory: No: Cough, Shortness of Breath Gastrointestinal: No: Nausea, Vomiting Genitourinary: No: Urgency, Frequency Musculoskeletal: No: Myalgias Neurologic: Positive: Change in Mentation, No: Weakness, Dizziness, Syncope, Focal Abnormalities Hematologic/Lymphatic: No: Easy Bruising Physical Exam Narrative GENERAL: Well-developed female SKIN: Focused skin assessment warm/dry. HEAD: Atraumatic. Normocephalic. EYES: Pupils equal and round. No scleral icterus. No injection or drainage. ENT: No nasal bleeding or discharge. Mucous membranes pink and moist. NECK: Trachea midline. No JVD. CARDIOVASCULAR: Regular rate and rhythm. No murmur appreciated. RESPIRATORY: No accessory muscle use. Clear to auscultation. Breath sounds equal bilaterally. GASTROINTESTINAL: Abdomen soft, non-tender, nondistended. Hepatic and splenic margins not palpable. MUSCULOSKELETAL: No obvious deformities. No clubbing. No cyanosis. No edema. NEUROLOGICAL: Awake and alert. No obvious cranial nerve deficits. Motor grossly within normal limits. Normal speech. He does not know the date as though she knows year. Electro Plater are equal. Leg strength is symmetric PSYCHIATRIC: Appropriate mood and affect; insight and judgment normal. Data Data Last Documented VS Vital Signs Date Time Temp Pulse Resp B/P (MAP) Pulse Ox O2 Delivery O2 Flow Rate FiO2 10/12/17 15:01 16 10/12/17 14:49 97.7 76 201/93 (129) 97 Orders Orders Electrocardiogram (10/12/17 15:17) Complete Blood Count With Diff (10/12/17 15:17) Comprehensive Metabolic Panel (10/12/17 15:17) Prothrombin Time / Inr (Pt) (10/12/17 15:17) Act Partial Throm Time (Ptt) (10/12/17 15:17) Urinalysis - C+S If Indicated (10/12/17 15:17) Thyroid Stimulating Hormone (10/12/17 15:17) Ct Brain W/O Iv Contrast(Rout) (10/12/17 15:17) Labs Laboratory Tests Test 10/12/17 15:28 White Blood Count 5.7 TH/MM3 Red Blood Count 4.11 MIL/MM3 Hemoglobin 11.9 GM/DL Hematocrit 36.5 % Mean Corpuscular Volume 88.8 FL Mean Corpuscular Hemoglobin 29.0 PG Mean Corpuscular Hemoglobin Concent 32.6 % Red Cell Distribution Width 14.1 % Platelet Count 248 TH/MM3 Mean Platelet Volume 7.8 FL Neutrophils (%) (Auto) 52.3 % Lymphocytes (%) (Auto) 32.3 % Monocytes (%) (Auto) 10.1 % Eosinophils (%) (Auto) 4.9 % Basophils (%) (Auto) 0.4 % Neutrophils # (Auto) 3.0 TH/MM3 Lymphocytes # (Auto) 1.8 TH/MM3 Monocytes # (Auto) 0.6 TH/MM3 Eosinophils # (Auto) 0.3 TH/MM3 Basophils # (Auto) 0.0 TH/MM3 CBC Comment DIFF FINAL Differential Comment Prothrombin Time 10.6 SEC Prothromb Time International Ratio 1.0 RATIO Activated Partial Thromboplast Time 23.5 SEC Blood Urea Nitrogen 15 MG/DL Creatinine 0.76 MG/DL Random Glucose 91 MG/DL Total Protein 8.3 GM/DL Albumin 3.4 GM/DL Calcium Level 8.4 MG/DL Alkaline Phosphatase 56 U/L Aspartate Amino Transf (AST/SGOT) 24 U/L Alanine Aminotransferase (ALT/SGPT) 25 U/L Total Bilirubin 0.3 MG/DL Sodium Level 135 MEQ/L Potassium Level 3.8 MEQ/L Chloride Level 102 MEQ/L Carbon Dioxide Level 25.8 MEQ/L Anion Gap 7 MEQ/L Estimat Glomerular Filtration Rate 73 ML/MIN Thyroid Stimulating Hormone 3rd Gen 0.128 uIU/ML MDM Medical Decision Making Medical Screen Exam Complete: Yes Emergency Medical Condition: Yes Medical Record Reviewed: Yes Differential Diagnosis Differential includes TIA, transient global amnesia, dementia onset Narrative Course Workup is ordered and disposition is pending results Shoaib Kimble MD Oct 12, 2017 15:21
[2017-10-12 15:41] LABS: BASOPHIL % 0.4 % (0.0-2.0); EOSINOPHIL # 0.3 TH/MM3 (0-0.4); EOSINOPHIL % 4.9 % (0.0-4.0); HEMATOCRIT 36.5 % (35.0-46.0); HEMO FLAGS DIFF FINAL; LYMPH % 32.3 % (9.0-44.0); LYMPHOCYTE # 1.8 TH/MM3 (1.0-4.8); MEAN CELL VOLUME 88.8 FL (80.0-100.0); MEAN CORPUSCULAR HGB CONC 32.6 % (32.0-36.0); MONO % 10.1 % (0.0-8.0); NEUT % 52.3 % (16.0-70.0); PLATELET COUNT 248 TH/MM3 (150-450); RED BLOOD COUNT 4.11 MIL/MM3 (4.00-5.30); RED CELL DISTRIBUTION WIDTH 14.1 % (11.6-17.2); WHITE BLOOD COUNT 5.7 TH/MM3 (4.0-11.0)
[2017-10-12 15:49] LABS: CHLORIDE 102 MEQ/L (98-107); POTASSIUM 3.8 MEQ/L (3.5-5.1); SODIUM (NA) 135 MEQ/L (136-145)
[2017-10-12 15:51] LABS: APTT (PATIENT) 23.5 SEC (24.3-30.1); PROTHROMBIN TIME - PATIENT 10.6 SEC (9.8-11.6)
[2017-10-12 15:52] LABS: ANION GAP 7 MEQ/L (5-15); BICARBONATE 25.8 MEQ/L (21.0-32.0)
[2017-10-12 15:53] LABS: BLOOD UREA NITROGEN 15 MG/DL (7-18)
[2017-10-12 15:55] LABS: ALT (GPT) 25 U/L (10-53); AST (GOT) 24 U/L (15-37)
[2017-10-12 15:56] LABS: GLOMERULAR FILTRATION RATE 73 ML/MIN (>89)
[2017-10-12 15:57] LABS: TOTAL BILIRUBIN ADULT 0.3 MG/DL (0.2-1.0)
[2017-10-12 15:58] LABS: ALKALINE PHOSPHATASE 56 U/L (45-117)
--- NOTE | 2017-10-12 16:03 | RADRPT ---
EXAM DATE/TIME: 10/12/2017 15:48 [facility] COMPARISON: No previous studies available for comparison. INDICATIONS : Confusion. RADIATION DOSE: 60.68 CTDIvol (mGy) MEDICAL HISTORY : Cardiovascular disease. Hypothyroidism. Hypercholesterolemia. SURGICAL HISTORY : Tonsillectomy. Coronary artery stent.Hysterectomy. ENCOUNTER: Initial ACUITY: 1 day PAIN SCALE: 0/10 LOCATION: cranial TECHNIQUE: Multiple contiguous axial images were obtained of the head. Using automated exposure control and adj ustment of the mA and/or kV according to patient size, radiation dose was kept as low as reasonably a chievable to obtain optimal diagnostic quality images. DICOM format image data is available electro nically for review and comparison. FINDINGS: CEREBRUM: The ventricles are normal for age. No evidence of midline shift, mass lesion, hemorrhage or acute in farction. No extra-axial fluid collections are seen. POSTERIOR FOSSA: The cerebellum and brainstem are intact. The 4th ventricle is midline. The cerebellopontine angle i s unremarkable. EXTRACRANIAL: The visualized portion of the orbits is intact. SKULL: The calvaria is intact. No evidence of skull fracture. CONCLUSION: No acute intracranial disease. Dominic Torres MD on October 12, 2017 at 16:01 Board Certified Radiologist. This report was verified electronically.
[2017-10-12 16:27] LABS: BLOOD, URINE SMALL (NEG); GLUCOSE,URINE NEG (NEG); KETONE, URINE NEG (NEG); NITRITE,URINE NEG (NEG); PH, URINE 6.5 (5.0-8.5)
--- NOTE | 2017-10-12 16:31 | PD ---
Physical Exam Narrative Patient was seen by ED physician and signed out to me. Data Data Last Documented VS Vital Signs Date Time Temp Pulse Resp B/P (MAP) Pulse Ox O2 Delivery O2 Flow Rate FiO2 10/12/17 15:01 16 10/12/17 14:49 97.7 76 201/93 (129) 97 Orders Orders Electrocardiogram (10/12/17 15:17) Complete Blood Count With Diff (10/12/17 15:17) Comprehensive Metabolic Panel (10/12/17 15:17) Prothrombin Time / Inr (Pt) (10/12/17 15:17) Act Partial Throm Time (Ptt) (10/12/17 15:17) Urinalysis - C+S If Indicated (10/12/17 15:17) Thyroid Stimulating Hormone (10/12/17 15:) Ct Brain W/O Iv Contrast(Rout) (10/12/17 15:17) Labs Laboratory Tests Test 10/12/17 15:28 10/12/17 16:08 White Blood Count 5.7 TH/MM3 Red Blood Count 4.11 MIL/MM3 Hemoglobin 11.9 GM/DL Hematocrit 36.5 % Mean Corpuscular Volume 88.8 FL Mean Corpuscular Hemoglobin 29.0 PG Mean Corpuscular Hemoglobin Concent 32.6 % Red Cell Distribution Width 14.1 % Platelet Count 248 TH/MM3 Mean Platelet Volume 7.8 FL Neutrophils (%) (Auto) 52.3 % Lymphocytes (%) (Auto) 32.3 % Monocytes (%) (Auto) 10.1 % Eosinophils (%) (Auto) 4.9 % Basophils (%) (Auto) 0.4 % Neutrophils # (Auto) 3.0 TH/MM3 Lymphocytes # (Auto) 1.8 TH/MM3 Monocytes # (Auto) 0.6 TH/MM3 Eosinophils # (Auto) 0.3 TH/MM3 Basophils # (Auto) 0.0 TH/MM3 CBC Comment DIFF FINAL Differential Comment Prothrombin Time 10.6 SEC Prothromb Time International Ratio 1.0 RATIO Activated Partial Thromboplast Time 23.5 SEC Blood Urea Nitrogen 15 MG/DL Creatinine 0.76 MG/DL Random Glucose 91 MG/DL Total Protein 8.3 GM/DL Albumin 3.4 GM/DL Calcium Level 8.4 MG/DL Alkaline Phosphatase 56 U/L Aspartate Amino Transf (AST/SGOT) 24 U/L Alanine Aminotransferase (ALT/SGPT) 25 U/L Total Bilirubin 0.3 MG/DL Sodium Level 135 MEQ/L Potassium Level 3.8 MEQ/L Chloride Level 102 MEQ/L Carbon Dioxide Level 25.8 MEQ/L Anion Gap 7 MEQ/L Estimat Glomerular Filtration Rate 73 ML/MIN Thyroid Stimulating Hormone 3rd Gen 0.128 uIU/ML Urine Color YELLOW Urine Turbidity SLIGHT Urine pH 6.5 Urine Specific [place] 1.012 Urine Protein NEG mg/dL Urine Glucose (UA) NEG mg/dL Urine Ketones NEG mg/dL Urine Occult Blood SMALL Urine Nitrite NEG Urine Bilirubin NEG Urine Leukocyte Esterase TRACE Urine RBC 0-3 /hpf Urine WBC 3-5 /hpf Urine Squamous Epithelial Cells > 8 /hpf Urine Bacteria RARE /hpf Microscopic Urinalysis Comment CULT NOT INDICATED MDM Supervised Visit with WING: No Interpretation(s) Last Impressions Head CT 10/12/17 1517 Signed Impressions: Service Date/Time: Thursday, October 12, 2017 15:48 - CONCLUSION: No acute intracranial disease. Dominic Torres MD 1627 PM. CBC within normal limit. CMP within normal limit. TSH 0.128. Narrative Course 77-year-old female with transient confusion, memory disturbance, repeating questions. Patient states that the symptoms started around 9:00 this morning. Patient is much improved now after arriving to the ED. Diagnosis Primary Impression: TIA (transient ischemic attack) Qualified Codes: G45.9 - Transient cerebral ischemic attack, unspecified Admitting Information Admitting Physician Requests: Observation Thomas Bonner MD Oct 12, 2017 16:31
[2017-10-12 16:33] LABS: URINE COLOR YELLOW (YELLW/STRAW)
[2017-10-12 16:34] LABS: BACTERIA, URINE RARE /hpf; RBC, URINE 0-3 /hpf (0-3); SQUAMOUS EPITHELIAL CELL URINE > 8 /hpf (0-5)
[2017-10-12 16:35] LABS: COMMENT (UR) CULT NOT INDICATED; CULTURE IF INDICATED CULT NOT INDICATED
[2017-10-12] MEDS: SODIUM CHLOR 0.9% 1000 ML INJ 1,000 ML IV SCH (17:06)
--- NOTE | 2017-10-12 19:07 | HHI.HP ---
[facility] Service [facility] Primary Care Physician Sim Cazares MD Admission Diagnosis TIA Diagnoses: Chief Complaint: memory lapse Travel History International Travel<30 Days: No Contact w/Intl Traveler <30 Da: No Traveled to Known Affected Are: No History of Present Illness 77 y/o WF being admitted for stroke like symptoms. Patient was in her usual state of health until earlier this morning when her noted that at one point during the conversations she began having significant memory gaps and concerning speech patterns. The patient would repeat the same question multiple times and he would answer it multiple times. He would ask her about recent events such as having her tooth pulled and her dentist visit and a few other recent events to which she had absolutely no memory recollection. He thought that this would pass so he gave an hour and had her ambulate outside with him but her symptoms still prevailed. He called her primary care physician's office and they were unable to secure an appointment for her today so they were advised to proceed to the emergency room. The denies seeing any facial droop or slurred speech. He said that she spoke in complete sentences and that her speech was understandable; it' s just that she had very obvious memory deficits. Patient reports having a very mild headache but no acute visual disturbances, focal numbness or tingling or motor deficits. Patient denies any nausea vomiting. Review of Systems Except as stated in HPI: all other systems reviewed are Neg Past Family Social History Past Medical History Coronary artery disease not amenable to stenting Herpes Hypothyroidism Past Surgical History Cardiac catheterization Allergies: Coded Allergies: amoxicillin (Unverified Adverse Reaction, Severe, NAUSEA VOMITING DIARRHEA , 10/12/17) clavulanic acid (Unverified Adverse Reaction, Severe, NAUSEA VOMITING DIARRHEA, 10/12/17) codeine (Unverified Adverse Reaction, Severe, NAUSEA VOMITING, 10/12/17) Sulfa (Sulfonamide Antibiotics) (Unverified Adverse Reaction, Mild, NAUSEA , 10/12/17) Family History Dementia in mother Social History Lives with her , denies ever smoking Physical Exam Vital Signs Vital Signs Date Time Temp Pulse Resp B/P (MAP) Pulse Ox O2 Delivery O2 Flow Rate FiO2 10/12/17 17:31 97.7 73 16 205/109 (141) 100 Room Air 10/12/17 17:09 67 212/109 (143) 10/12/17 15:01 16 10/12/17 14:49 97.7 76 16 201/93 (129) 97 Physical Exam VS: Afebrile GENERAL: Elderly well-nourished white female SKIN: Warm and dry. EYES: Pupils equal and round. No scleral icterus. No injection or drainage. ENT: No nasal bleeding or discharge. Mucous membranes pink and moist. CARDIOVASCULAR: Regular rate and rhythm. no murmurs RESPIRATORY: No accessory muscle use. Clear to auscultation. Breath sounds equal bilaterally. GASTROINTESTINAL: Abdomen soft, non-tender, nondistended. Extremities: No clubbing, cyanosis, or edema. No obvious deformities. MUSCULOSKELETAL: No obvious deformities. grossly intact ROM with 5/5 strength in upper and lower extremities proximally NEUROLOGICAL: Awake and alert. No obvious cranial nerve deficits. No facial droop nor slurred speech noted. Intact +2 patellar reflexes bilaterally with intact sensation to pinprick on lower extremities. Intact dorsiflexion and plantar flexion of both feet. PSYCHIATRIC: Appropriate mood and affect; insight and judgment normal. Laboratory Laboratory Tests Test 10/12/17 15:28 10/12/17 16:08 White Blood Count 5.7 Red Blood Count 4.11 Hemoglobin 11.9 Hematocrit 36.5 Mean Corpuscular Volume 88.8 Mean Corpuscular Hemoglobin 29.0 Mean Corpuscular Hemoglobin Concent 32.6 Red Cell Distribution Width 14.1 Platelet Count 248 Mean Platelet Volume 7.8 Neutrophils (%) (Auto) 52.3 Lymphocytes (%) (Auto) 32.3 Monocytes (%) (Auto) 10.1 Eosinophils (%) (Auto) 4.9 Basophils (%) (Auto) 0.4 Neutrophils # (Auto) 3.0 Lymphocytes # (Auto) 1.8 Monocytes # (Auto) 0.6 Eosinophils # (Auto) 0.3 Basophils # (Auto) 0.0 CBC Comment DIFF FINAL Differential Comment Prothrombin Time 10.6 Prothromb Time International Ratio 1.0 Activated Partial Thromboplast Time 23.5 Blood Urea Nitrogen 15 Creatinine 0.76 Random Glucose 91 Total Protein 8.3 Albumin 3.4 Calcium Level 8.4 Alkaline Phosphatase 56 Aspartate Amino Transf (AST/SGOT) 24 Alanine Aminotransferase (ALT/SGPT) 25 Total Bilirubin 0.3 Sodium Level 135 Potassium Level 3.8 Chloride Level 102 Carbon Dioxide Level 25.8 Anion Gap 7 Estimat Glomerular Filtration Rate 73 Thyroid Stimulating Hormone 3rd Gen 0.128 Urine Color YELLOW Urine Turbidity SLIGHT Urine pH 6.5 Urine Specific [place] 1.012 Urine Protein NEG Urine Glucose (UA) NEG Urine Ketones NEG Urine Occult Blood SMALL Urine Nitrite NEG Urine Bilirubin NEG Urine Leukocyte Esterase TRACE Urine RBC 0-3 Urine WBC 3-5 Urine Squamous Epithelial Cells > 8 Urine Bacteria RARE Microscopic Urinalysis Comment CULT NOT INDICATED Result Diagram: 10/12/17 1528 10/12/17 1528 Imaging Last Impressions Head CT 10/12/17 1517 Signed Impressions: Service Date/Time: Thursday, October 12, 2017 15:48 - CONCLUSION: No acute intracranial disease. MD Adelita Dugan VTE Risk Assessment Adelita VTE Risk Assessment: Mod/High Risk (score >= 2) Servandorini Risk Assessment Model Point Value = 1 Point Value = 2 Point Value = 3 Point Value = 5 Age 41-60 Minor surgery BMI > 25 kg/m2 Swollen legs Varicose veins or History of unexplained or recurrent spontaneous Oral contraceptives or hormone replacement Sepsis (< 1 month) Serious lung disease, including pneumonia (< 1 month) Abnormal pulmonary function Acute myocardial infarction Congestive heart failure (< 1 month) History of inflammatory bowel disease Medical patient at bed rest Age 61-74 Arthroscopic surgery Major open surgery (> 45 min) Laparoscopic surgery (> 45 min) Malignancy Confined to bed (> 72 hours) Immobilizing plaster cast Central venous access Age >= 75 History of VTE Family history of VTE Factor V Leiden Prothrombin [id number] Lupus anticoagulant Anticardiolipin antibodies Elevated serum homocysteine Heparin-induced thrombocytopenia Other congenital or acquired thrombophilia Stroke (< 1 month) Elective arthroplasty Hip, pelvis, or leg fracture Acute spinal cord injury (< 1 month) Prophylaxis Regimen Total Risk Factor Score Risk Level Prophylaxis Regimen 0-1 Low Early ambulation 2 Moderate Order ONE of the following: *Sequential Compression Device (SCD) *Heparin 5000 units SQ BID 3-4 Higher Order ONE of the following medications: *Heparin 5000 units SQ TID *Enoxaparin/Lovenox 40 mg SQ daily (WT < 150 kg, CrCl > 30 mL/min) *Enoxaparin/Lovenox 30 mg SQ daily (WT < 150 kg, CrCl > 10-29 mL/min) *Enoxaparin/Lovenox 30 mg SQ BID (WT < 150 kg, CrCl > 30 mL/min) AND/OR *Sequential Compression Device (SCD) 5 or more Highest Order ONE of the following medications: *Heparin 5000 units SQ TID (Preferred with Epidurals) *Enoxaparin/Lovenox 40 mg SQ daily (WT < 150 kg, CrCl > 30 mL/min) *Enoxaparin/Lovenox 30 mg SQ daily (WT < 150 kg, CrCl > 10-29 mL/min) *Enoxaparin/Lovenox 30 mg SQ BID (WT < 150 kg, CrCl > 30 mL/min) AND *Sequential Compression Device (SCD) Assessment and Plan Assessment and Plan Strokelike symptoms - We'll engage and permissive hypertension as the CT head is negative - We'll increase the patient's home dose of 10 mg atorvastatin to 40 mg - Continue high-dose aspirin today, switch to low-dose aspirin upon discharge - We'll have speech evaluate the patient for cognition and swallowing - Bedside nursing swallow tonight - We'll consider MRI of the head and carotid ultrasounds as well as echocardiogram in a.m. - I obtained an EKG stat which I independently reviewed and shows normal sinus rhythm - Case discussed with neurology who feels that a TIA workup is at the very least appropriate HTN - hold home meds in light of permissive HTN hypothyroidism - continue home synthroid DVT prevention -lovenox Chris Cooper MD Oct 12, 2017 19:07
[2017-10-12] MEDS ORDERED: ENALAPRILAT 1.25 MG/ML VIAL IV PUSH PRN (19:15)
[2017-10-12] MEDS ORDERED: PILL SPLITTER OTHER PRN (19:15)
[2017-10-12] MEDS ORDERED: CALCIUM POLYCARBOPHIL 625 MG TAB PO PRN (19:30)
[2017-10-12] MEDS ORDERED: MAGNESIUM HYDROXIDE SUSP 30 ML CUP PO PRN (19:45)
[2017-10-12] MEDS ORDERED: AMBI5TAB PO (19:59)
[2017-10-12] MEDS ORDERED: GLUCAGON 1 MG/ML VIAL OTHER PRN (20:00)
[2017-10-12] MEDS ORDERED: ENOXAPARIN SODIUM 30 MG/0.3 ML SYRINGE SQ SCH (20:00)
[2017-10-12] MEDS ORDERED: SODIUM CHLOR 0.9% 1000 ML INJ 1,000 ML IV SCH (20:00)
[2017-10-12] MEDS ORDERED: SODIUM CHLORIDE 0.9% FLUSH 10 ML FLUSH IV FLUSH PRN (20:00)
[2017-10-12] MEDS ORDERED: DEXTROSE 50% IN WATER 50 ML VIAL(D50) IV PUSH PRN (20:00)
[2017-10-12] MEDS ORDERED: ATORVASTATIN 40 MG TAB PO SCH (21:00)
[2017-10-12] MEDS: INSULIN ASPART SUPPLEMENTAL SCALE SQ SCH (21:00)
[2017-10-12] MEDS ORDERED: COENZYME Q10 PO SCH (21:00)
[2017-10-12] MEDS: SODIUM CHLORIDE 0.9% FLUSH 10 ML FLUSH IV FLUSH SCH (21:00)
--- NOTE | 2017-10-12 21:09 | MB ---
cc: АЛЕКСАНДР CALL DATE OF CONSULTATION: 10/12/2017 REASON FOR CONSULTATION: Amnesia. HISTORY OF PRESENT ILLNESS Ms. Zelaya as a pleasant 77-year-old woman who was in her usual state of good health until this afternoon when she suddenly developed difficulty with her memory. She states there was a period of time today that she does not recall at all. Her noted that she was confused, disoriented, and came to the ER. She had no headache, no focal neurological deficits, was very hypertensive in the ER with systolic pressures of over 200, pressure now back to normal. PAST MEDICAL HISTORY: Coronary artery disease, hypothyroidism, cardiac catheterization. ALLERGIES: AMOXICILLIN CLAVULANIC ACID CODEINE SULFA. MEDICATIONS: 1. Valtrex 250 milligrams daily 2. Lexapro 20 milligrams daily. 3. Aspirin 325 milligrams daily. 4. Synthroid 112 micrograms daily. 5. Lipitor 40 milligrams daily. 6. Lovenox 30 milligrams subcu daily. 7. Vasotec p.r.n. NEUROLOGIC EXAMINATION Blood pressure currently is 154/83, pulse 70, respirations 18, temperature 97 degrees. Higher cortical functions, she is alert, oriented x3, recalls 0/3 objects in 3 minutes. Remote memory is normal. Speech is fluent. Naming ability is normal. There is no neglect. Cranial nerves: Intact. Motor exam 5/5 strength of all groups in both upper and lower extremities. There is no drift. Fine motor skills within normal limits. Reflexes 2+ symmetric. CT of the brain is within normal limits for age. LABORATORY DATA White count is 5700, hemoglobin 11.9, hematocrit 36%, platelet count 248,000. Sodium is 135, potassium 3.8, chloride 102, CO2 is 25.8, BUN is 15, creatinine 0.76, AST 24, ALT is 25, TSH 0.128. PT 10.6, INR 1, APTT 22.5. Urinalysis, the pH is 6.5. Specific gravity 1.012. IMPRESSION Transient global amnesia. RECOMMENDATIONS MRI of the brain, also echocardiogram, carotid ultrasound. Continue aspirin 325 mg daily. MD BLANCHE Koehler/JOAQUIN /7:57 PM /8:58 PM
[2017-10-12] MEDS ORDERED: ACETAMINOPHEN 325 MG TAB PO ONE (23:15)
[2017-10-13] VITALS (7 sets, daily range): BP systolic 125–158; BP diastolic 64–77; PULSE 68–82; RESP 17–25; TEMP 97–98.3; O2SAT 95–98
[2017-10-13] MEDS: SODIUM CHLOR 0.9% 1000 ML INJ 1,000 ML IV SCH (05:00)
[2017-10-13] MEDS ORDERED: LEVOTHYROXINE SODIUM 112 MCG TAB PO SCH (06:00)
[2017-10-13] MEDS: INSULIN ASPART SUPPLEMENTAL SCALE SQ SCH ×2 (08:00→12:00)
[2017-10-13] MEDS: SODIUM CHLORIDE 0.9% FLUSH 10 ML FLUSH IV FLUSH SCH (08:59)
[2017-10-13] MEDS ORDERED: valACYclovir HCL 500 MG TAB PO SCH (09:00)
[2017-10-13] MEDS ORDERED: DHA PO SCH (09:00)
[2017-10-13] MEDS ORDERED: ASPIRIN 325 MG TAB PO SCH (09:00)
[2017-10-13] MEDS ORDERED: PHOSPHO PO SCH (09:00)
[2017-10-13] MEDS ORDERED: ESCITALOPRAM OXALATE 20 MG TAB PO SCH (09:00)
[2017-10-13] MEDS ORDERED: KRILL PO SCH (09:00)
[2017-10-13] MEDS ORDERED: [UNRECOGNIZED DRUG - OTHER] PO SCH (09:00)
[2017-10-13] MEDS ORDERED: EPA PO SCH (09:00)
[2017-10-13] MEDS ORDERED: AST PO SCH (09:00)
[2017-10-13] MEDS ORDERED: NON-FORMULARY DRUG (Biotin 5 MG) PO SCH (09:00)
--- NOTE | 2017-10-13 10:25 | RADRPT ---
EXAM DATE/TIME: 10/13/2017 09:16 [facility] COMPARISON: No previous studies available for comparison. INDICATIONS : Transischemic attack. Confusion. MEDICAL HISTORY : Thyroid disease. CAD. CHypercholesterol. GERD. Diverticulosis. Hiatal hernia. Herpes. SURGICAL HISTORY : Right eye cataract. Tonsillectomy. Cardiac catheterization. Coronary stent. Hysterectomy. ENCOUNTER: Initial ACUITY: 1 day PAIN SCORE: 0/10 LOCATION: Bilateral neck PEAK SYSTOLIC VELOCITIES (cm/sec): ICA/CCA RATIO: Right: 2.5 Left: 1.3 ICA: Right: 189 Left: 109 CCA: Right: 74 Left: 86 ECA: Right: 97 Left: 69 VERTEBRAL: Right: 46 antegrade Left: 41 antegrade Elevated flow velocities and ICA/CCA ratios have been found to correlate with increased degrees of vessel stenosis, calculated as percentage of diameter relative to a normal segment of distal ICA/CCA FINDINGS: RIGHT CAROTID: Moderate calcified plaque is identified in the right carotid bifurcation extending into the internal carotid artery. Increased loss E. with thin ICA/CCA ratio of 2.5 is characteristic of a moderate to s evere stenosis in the 50-69% range. Spectral broadening is noted. LEFT CAROTID: Mild plaque is identified. No significant stenosis is visualized. Mild spectral broadening noted. VERTEBRAL ARTERIES: Antegrade flow is seen in both vertebral arteries. MISCELLANEOUS: None. CONCLUSION: 1. Moderate to severe stenosis of the proximal right ICA based on elevated velocities and increased I CA/CCA ratio. Degree of stenosis is between 50 and 69%. Better characterization can be obtained with CTA of the carotid arteries if clinically indicated. 2. Mild plaque left carotid bifurcation without significant stenosis. 3. Antegrade flow in vertebral arteries. Nick De La Cruz MD on October 13, 2017 at 10:18 Board Certified Radiologist. This report was verified electronically.
--- NOTE | 2017-10-13 11:50 | EKG ---
Date Performed: 10/12/2017 Time Performed: 15:29:02 PTAGE: 77 years EKG: Sinus rhythm NORMAL ECG Compared to prior tracing no significant change PREVIOUS TRACING : 07/29/2017 20.32 DOCTOR: Hema Melgar Interpretating Date/Time 10/13/2017 11:49:45
[2017-10-13 12:25] LABS: HEMOGLOBIN A1a 1.1 %; HEMOGLOBIN A1b 0.8 %; HEMOGLOBIN Ao 84.5 %; HEMOGLOBIN F 1.4 %; HEMOGLOBIN LA1C 1.5 %; HEMOGLOBIN P3 3.6 %
--- NOTE | 2017-10-13 12:43 | EKG ---
Date Performed: 10/12/2017 Time Performed: 19:19:29 PTAGE: 77 years EKG: NORMAL Sinus rhythm POSSIBLE INFERIOR MYOCARDIAL INFARCTION BORDERLINE ECG Since PREVIOUS TRACING , no significant change noted PREVIOUS TRACIN10/12/2017 15.29 DOCTOR: Hema Melgar Interpretating Date/Time 10/13/2017 12:42:30
--- NOTE | 2017-10-13 13:06 | HHI.DCPOC ---
Discharge Care Plan Diagnosis: (1) CAD (coronary artery disease) (2) TIA (transient ischemic attack) (3) Hyperlipidemia (4) Hypothyroidism (5) PVD (peripheral vascular disease) Goals to Promote Your Health * To prevent worsening of your condition and complications * To maintain your health at the optimal level Directions to Meet Your Goals Take your medications as prescribed Follow your dietary instruction Follow activity as directed Keep your appointments as scheduled Take your immunizations and boosters as scheduled If your symptoms worsen call your PCP, if no PCP go to Urgent Care Center or Emergency Room Smoking is Dangerous to Your Health. Avoid second hand smoke Call the 24-hour hour crisis hotline for domestic abuse at Lidia Schulz Oct 13, 2017 13:06
[2017-10-13] MEDS ORDERED: ATOR40TA16 PO (13:09)
[2017-10-13] MEDS ORDERED: GADODIAMIDE PF 287 MG/ML 5 ML VIAL (for RAD MRI) IV PUSH ONE (13:45)
[2017-10-13 14:03] LABS: HDL CHOLESTEROL 43.4 MG/DL (40.0-60.0)
--- NOTE | 2017-10-13 14:16 | RADRPT ---
EXAM DATE/TIME: 10/13/2017 13:24 [facility] COMPARISON: MRI BRAIN W & W/O CONTRAST, October 13, 2017, 13:24. INDICATIONS : CVA. MEDICAL HISTORY : Gastroesophageal reflux disease. Diverticulitis. SURGICAL HISTORY : Tonsillectomy. Hysterectomy. ENCOUNTER: Initial ACUITY: 2 day PAIN SCORE: 0/10 LOCATION: Head Please note a normal MRA of the brain does not entirely exclude the possibility of a small aneurysm, nor the possibility of distal intracranial vessel disease. TECHNIQUE: 3D time of flight MRA was performed. Source images, multiplanar STS MIP, and 3D volume MIP reconstru ctions were reviewed. FINDINGS: There is excellent visualization of the major intracranial arteries out to the second-order branch ve ssels. There is no evidence for aneurysm, vessel truncation or stenosis, and no evidence for vascular malfor mation. CONCLUSION: 1. No evidence of focal stenotic or occlusive disease. 2. No evidence of significant vasculopathy, aneurysm or vascular malformation. Nick De La Cruz MD on October 13, 2017 at 14:09 Board Certified Radiologist. This report was verified electronically.
--- NOTE | 2017-10-13 14:45 | RADRPT ---
EXAM DATE/TIME: 10/13/2017 13:24 [facility] COMPARISON: No previous studies available for comparison. INDICATIONS : CVA. CONTRAST: 14 cc Omniscan (gadodiamide) IV MEDICAL HISTORY : Gastroesophageal reflux disease. Diverticulitis. SURGICAL HISTORY : Tonsillectomy. Hysterectomy. ENCOUNTER: Initial ACUITY: 2 day PAIN SCORE: 0/10 LOCATION: head TECHNIQUE: Multiplanar, multisequence MRI of the brain was performed both prior to and following the administrat ion of paramagnetic contrast. FINDINGS: CEREBRUM: The ventricles are normal for age. No evidence of midline shift, mass lesion, hemorrhage or acute in farction. No extraaxial fluid collections are seen. The pituitary gland and suprasellar cistern are normal in configuration. WHITE MATTER: No significant signal abnormalities are seen in the white matter. POSTERIOR FOSSA: The cerebellum and brainstem are intact. The 4th ventricle is midline. The cerebellopontine angle is unremarkable. The cerebellar tonsils are normal in position. DIFFUSION IMAGING: No focal areas of restricted diffusion are seen. No evidence of acute infarction. EXTRACRANIAL: The visualized portions of the orbits and paranasal sinuses are unremarkable. POST-CONTRAST: No abnormal areas of parenchymal or dural enhancement. No evidence of blood-brain barrier breakdown. CONCLUSION: 1. Unremarkable exam. 2. No evidence of acute infarct, hemorrhage, mass, edema or enhancing lesions. Nick De La Cruz MD on October 13, 2017 at 14:34 Board Certified Radiologist. This report was verified electronically.
--- NOTE | 2017-10-13 14:48 | ECHRPT ---
Indication: shortness of breath CONCLUSIONS The left ventricular systolic function is normal with an estimated ejection fraction in the range of 60-65%. Normal left ventricular size. Wall thickness is normal. No regional wall motion abnormalities are present. Mild mitral regurgitation. There is trace tricuspid valve regurgitation. The estimated pulmonary arterial pressure is 33 mmHg. BP: 107 / 61 HR: 76 Rhythm: Sinus MEASUREMENTS (Male / Female) Normal Values Technical Quality:Fair 2D ECHO LV Diastolic Diameter PLAX 3.4 cm 4.2 - 5.9 / 3.9 - 5.3 cm LV Systolic Diameter PLAX 2.2 cm IVS Diastolic Thickness 1.1 cm 0.6 - 1.0 / 0.6 - 0.9 cm LVPW Diastolic Thickness 1.1 cm 0.6 - 1.0 / 0.6 - 0.9 cm LV Relative Wall Thickness 0.7 RV Internal Dim ED PLAX 2.3 cm LVOT Diameter 1.7 cm M-MODE Aortic Root Diameter MM 2.9 cm LA Systolic Diameter MM 3.6 cm LA Ao Ratio MM 1.2 AV Cusp Separation MM 1.8 cm DOPPLER AV Peak Velocity 155.0 cm/s AV Peak Gradient 9.6 mmHg LVOT Peak Velocity 96.3 cm/s LVOT Peak Gradient 3.7 mmHg AV Area Cont Eq pk 1.4 cm MV Area PHT 3.0 cm Mitral E Point Velocity 110.0 cm/s Mitral A Point Velocity 103.1 cm/s Mitral E to A Ratio 1.1 LV E' Lateral Velocity 6.4 cm/s Mitral E to LV E' Lateral Ratio 17.1 LV E' Septal Velocity 5.9 cm/s Mitral E to LV E' Septal Ratio 18.5 TR Peak Velocity 239.0 cm/s TR Peak Gradient 22.8 mmHg Right Atrial Pressure 10.0 mmHg Pulmonary Artery Systolic Pressu 32.8 mmHg Right Ventricular Systolic Press 32.8 mmHg PV Peak Velocity 80.1 cm/s PV Peak Gradient 2.6 mmHg FINDINGS LEFT VENTRICLE The left ventricular systolic function is normal with an estimated ejection fraction in the range of 60-65%. Normal left ventricular size. Wall thickness is normal. No regional wall motion abnormalities are present. MITRAL VALVE Mild mitral regurgitation. TRICUSPID VALVE Structurally normal tricuspid valve. There is trace tricuspid valve regurgitation. The estimated pulmonary arterial pressure is 32.8 mmHg. Ayden Palomo MD, FACC (Electronically Signed) Final Date:13 October 2017 14:48
[2017-10-13] MEDS ORDERED: ASPI81TA23 PO (15:25)
--- NOTE | 2017-10-13 15:26 | HHI.PR ---
Subjective Remarks Nursing denies any deterioration since last night. Speech therapy eval shows no need for further cognitive therapy after discharge. Patient says that she feels fine. Objective Vital Signs Date Time Temp Pulse Resp B/P (MAP) Pulse Ox O2 Delivery O2 Flow Rate FiO2 10/13/17 15:00 80 10/13/17 12:00 97.8 70 21 142/73 (96) 95 10/13/17 12:00 68 10/13/17 10:00 68 10/13/17 08:00 98.3 74 22 144/70 (94) 96 10/13/17 08:00 74 10/13/17 04:00 98.0 70 17 125/64 (84) 95 10/13/17 00:00 72 10/13/17 00:00 97.0 74 24 155/74 (101) 98 10/12/17 22:39 68 28 157/82 (107) 10/12/17 20:00 64 21 10/12/17 20:00 66 10/12/17 19:41 95 21 10/12/17 19:41 98.0 70 24 157/80 (105) 95 10/12/17 18:49 70 18 218/103 (141) 98 Room Air 10/12/17 17:31 97.7 73 16 205/109 (141) 100 Room Air 10/12/17 17:09 67 212/109 (143) I/O 10/12/17 10/12/17 10/12/17 10/13/17 10/13/17 10/13/17 07:00 15:00 23:00 07:00 15:00 23:00 Intake Total 1420 ml Output Total 400 ml 1650 ml Balance -400 ml -230 ml Intake Oral 320 ml IV Total 1100 ml Output Urine Total 400 ml 1650 ml # Voids 2 4 # Bowel Movements 0 Result Diagram: 10/12/17 1528 10/12/17 1528 Objective Remarks No facial droop, no slurred speech, no confusion. Patient is oriented 3 and is very conversive and pleasant. Intact deliberate movements of all 4 extremities with no obvious deficits. A/P Assessment and Plan Brain MRI is unremarkable for any stroke. Carotid ultrasound showing stenosis anywhere from 50-69% stenosis on the right side. Case was discussed with Dr. nusrat gonsales from vascular surgery who recommended that the patient follow-up with him as an outpatient. Echocardiogram is unremarkable. Patient's blood pressure has spontaneously normalized. Patient has met maximum benefit from hospitalization and is clinically stable for discharge. EEG can be followed up as outpatient results as well as B12 levels. Chris Cooper MD Oct 13, 2017 15:26
--- NOTE | 2017-10-13 20:37 | MG ---
cc: TRICIA BRENNAN MD Lab No: Date: 10/13/17 Age: 77 Sex: F Race: REFERRING PHYSICIAN Dr. Lloyd An EEG was obtained on this 77-year-old patient awake and asleep being evaluated for confusion, possible seizures. The EEG is showing a lot of low amplitude beta rhythms diffusely and there are some 10-12 per second low to mid amplitude alpha rhythms posteriorly. The background is reactive. The patient drowses and there is more widespread beta activity. Photic stimulation showed a bilateral driving response. Hyperventilation was not performed. INTERPRETATION This is a normal awake and drowsy EEG. Tricia Brennan MD [facility]/ /8:18 PM /8:33 PM
== END 2017-10-13 16:15 | disposition home or self-care (01) | DRG 72 ==
LOC: PHED 14:38 → PHEDA 16:46 → PHICU 19:33
PROVIDERS: ADMIT Hospitalist; ATTEND Hospitalist
DX: G45.4 Transient global amnesia (principal); I10 Essential (primary) hypertension; E03.9 Hypothyroidism, unspecified; I25.10 Atherosclerotic heart disease of native coronary artery without angina pectoris; E78.5 Hyperlipidemia, unspecified; I73.9 Peripheral vascular disease, unspecified; K21.9 Gastro-esophageal reflux disease without esophagitis; K57.90 Diverticulosis of intestine, part unspecified, without perforation or abscess without bleeding; Z95.5 Presence of coronary angioplasty implant and graft
CPT/HCPCS: 70450; 70544; 70553; 80053; 80061; 81001; 82607; 82948; 83036; 84443; 85025; 85610; 85730; 93005; 93306; 93880; 95819; A9579; G8996-GN; G8997-GN; G8998-GN; J1650; J7030